=== PATIENT | female | born 1950 | race Caucasian/White ===

== ENCOUNTER 2020-07-04 17:13 | Observation (INO) ==
[2020-07-04] MEDS ORDERED: ASPIRIN CHEW 324 MG PO STA (18:05)
[2020-07-04] MEDS ORDERED: NITROGLYCERIN 60 SPRAYS/4.9 GM SPRAY SL STA (18:05)
--- NOTE | 2020-07-04 18:08 | Emergency Department Note ---
Impression & Plan Chest pain, Abnormal ECG, Frequent PVCs ED Provider Note NAME: HUDSON PITTMAN AGE: 70 SEX: F : 1950 ARRIVES VIA: Walk-In INFORMANT: Patient, ED PROVIDER(S): Piotr Carrillo DO CHIEF COMPLAINT: Chest discomfort HPI: The patient is a 70-year-old female who has a history of hypertension and scoliosis who presented to the emergency department for evaluation of chest discomfort. The patient states that she has had chest discomfort intermittently over the course of the last few days. She states that the pain is worsened with exertion and sometimes relieved with rest. She describes it as a tightness across the anterior part of her chest. It does not radiate to her back. She does not notice any lower extremity swelling or pain. She denies having any abdominal pain. She notices no nausea or vomiting. She states that she also notices some shortness of breath when she experiences the symptoms. She states that she was seen at acute care and had a Covid swab which was negative. She was referred to the emergency department for further evaluation. ROS: See above HPI for pertinent positives & negatives. A total of 10 systems reviewed and were otherwise negative. PAST MEDICAL HISTORY: See Below PAST SURGICAL HISTORY: See Below FAMILY HISTORY: See Below SOCIAL HISTORY: See Below HOME MEDICATIONS: See Below ALLERGIES: See Below VITALS: See Below PHYSICAL EXAMINATION: GENERAL: Patient is awake alert in no acute distress patient is resting comfortably and showing no signs of anxiety EYES: The conjunctivae are clear. The pupils are round and reactive. EARS, NOSE, MOUTH AND THROAT: The nose is without any evidence of any deformity. NECK: The neck is nontender and supple. RESPIRATORY: Normal respiratory effort is noted there is no evidence of wheezing rhonchi or rales CARDIOVASCULAR: Regular rate and rhythm noted there no murmurs rubs or gallops normal S1 normal S2. GASTROINTESTINAL: The abdomen is soft. Abdomen is nontender. BACK: Significant scoliosis noted of the thoracic spine. MUSCULOSKELETAL/EXTREMITIES: There is no evidence of gross deformity full range of motion is noted in the hips and shoulders. SKIN: There is no obvious evidence of any rash. There are no petechiae, pallor or cyanosis noted. NEUROLOGIC: Patient is awake alert and oriented x3. MEDICAL DECISION MAKING: The patient is a 70-year-old female who presented to the emergency department for an evaluation of chest discomfort. She describes pressure that was associated with shortness of breath as well as exertion. The patient was treated with aspirin and nitroglycerin in the emergency department. She was feeling much better. Cardiac biomarker was negative despite having ongoing pain throughout the day. Her EKG did show frequent PVCs as well as ST segment abnormalities that could be related to ischemia. I discussed the patient's laboratory and radiographic studies with her. I also discussed the limitations of the emergency department work-up for chest pain with her. Given the patient's risk factors as well as her abnormal EKG I do feel the patient may require inpatient management and further work-up. For this reason I discussed her case with the on-call [facility] hospitalist. They have agreed to evaluate the patient in the emergency department for further management and disposition. Triage Nursing notes reviewed. Prior medical records reviewed Vital Signs: reviewed and remarkable for elevated blood pressure. Differential diagnosis: Cardiac ischemia, aortic dissection, pulmonary embolism, pneumothorax, pneumonia, pericarditis, myocarditis, esophageal rupture, GERD, cholecystitis, pancreatitis, musculoskeletal, as well as other pathologies. ER treatment provided: See below Diagnostics interpreted by me: ECG: EKG was obtained in the emergency department. My interpretation is sinus rhythm at 69 bpm. Frequent PVCs were noted. Anterior T wave inversions were noted. No previous EKG was available for comparison. Cardiac Monitoring: An order was placed for continuous cardiac monitoring. The monitor shows a rate of 85 bpm with sinus rhythm. Laboratory studies: As stated above and show below. Imaging studies: See below Consultation(s): 1919: I discussed this case with Dr. Corona. He will evaluate the patient in the emergency department. Past Med/Surg History Medical History Hypertension Scoliosis Social History (Updated 07/04/20 @ 18:08 by Piotr Carrillo DO) Smoking Status: Never smoker Hx Alcohol Use: No Feels Safe at Home: Yes Allergies Allergies Allergy/AdvReac Type Severity Reaction Status Date / Time No Known Allergies Allergy Unverified 07/04/20 18:59 Home Meds Home Medications Medication Instructions Recorded Confirmed acetaminophen [Tylenol] 350 mg PO QID PRN 07/04/20 07/04/20 calcium carbonate-vitamin D3 1 tab PO DAILY 07/04/20 07/04/20 [Calcium + D] ibuprofen 400 mg PO Q6H PRN 07/04/20 07/04/20 lisinopril-hydrochlorothiazide 1 tab PO DAILY 07/04/20 07/04/20 Results & Data (ED) Vital Signs Vital Signs - 24 hr 07/04/20 17:20 07/04/20 17:38 07/04/20 18:00 Temperature 36.3 C L Temperature Source Oral Pulse Rate 75 70 Pulse Rhythm Regular Pulse Strength Normal Respiratory Rate 18 15 Respiratory Effort / Characteristics Non-Labored Respiratory Depth Normal Respiratory Pattern Regular Blood Pressure 155/85 H 148/87 H Blood Pressure Mean 108 107 Blood Pressure Position Sitting Pulse Oximetry 97 Oxygen Delivery Method Room Air Room Air Sepsis Recent Fever Within 48 Hours No Sepsis New/Unexplained Change in Mental Status No Sepsis Action Taken by Nursing No Action Required 07/04/20 18:03 07/04/20 18:10 07/04/20 18:20 Temperature Temperature Source Pulse Rate 74 85 76 Pulse Rhythm Pulse Strength Respiratory Rate 21 17 17 Respiratory Effort / Characteristics Respiratory Depth Respiratory Pattern Blood Pressure Blood Pressure Mean Blood Pressure Position Pulse Oximetry Oxygen Delivery Method Sepsis Recent Fever Within 48 Hours Sepsis New/Unexplained Change in Mental Status Sepsis Action Taken by Nursing 07/04/20 18:30 07/04/20 18:40 07/04/20 18:50 Temperature Temperature Source Pulse Rate 68 81 77 Pulse Rhythm Pulse Strength Respiratory Rate 14 21 17 Respiratory Effort / Characteristics Respiratory Depth Respiratory Pattern Blood Pressure 149/94 H Blood Pressure Mean 112 Blood Pressure Position Pulse Oximetry Oxygen Delivery Method Sepsis Recent Fever Within 48 Hours Sepsis New/Unexplained Change in Mental Status Sepsis Action Taken by Nursing 07/04/20 19:00 07/04/20 19:10 07/04/20 19:20 Temperature Temperature Source Pulse Rate 67 68 68 Pulse Rhythm Pulse Strength Respiratory Rate 16 21 17 Respiratory Effort / Characteristics Respiratory Depth Respiratory Pattern Blood Pressure 159/95 H Blood Pressure Mean 116 Blood Pressure Position Pulse Oximetry 95 Oxygen Delivery Method Sepsis Recent Fever Within 48 Hours Sepsis New/Unexplained Change in Mental Status Sepsis Action Taken by Nursing 07/04/20 19:30 07/04/20 19:40 07/04/20 19:50 Temperature Temperature Source Pulse Rate 66 66 65 Pulse Rhythm Pulse Strength Respiratory Rate 16 23 22 Respiratory Effort / Characteristics Respiratory Depth Respiratory Pattern Blood Pressure 133/90 Blood Pressure Mean 104 Blood Pressure Position Pulse Oximetry Oxygen Delivery Method Sepsis Recent Fever Within 48 Hours Sepsis New/Unexplained Change in Mental Status Sepsis Action Taken by Nursing 07/04/20 20:00 07/04/20 20:10 07/04/20 20:20 Temperature Temperature Source Pulse Rate 65 62 63 Pulse Rhythm Pulse Strength Respiratory Rate 15 18 20 Respiratory Effort / Characteristics Respiratory Depth Respiratory Pattern Blood Pressure 185/106 H Blood Pressure Mean 132 Blood Pressure Position Pulse Oximetry 95 Oxygen Delivery Method Sepsis Recent Fever Within 48 Hours Sepsis New/Unexplained Change in Mental Status Sepsis Action Taken by Usp Medications Current Medication List: was personally reviewed by me Laboratory Data Attestation: I reviewed the patient's lab results. Result diagrams: 07/04/20 17:55 07/04/20 17:55 Lab Results 07/04/20 07/04/20 07/04/20 Range/Units 17:55 17:55 17:55 WBC 7.51 (4.8-10.8) K/uL RBC 4.75 (4.2-5.4) M/uL Hgb 13.5 (12.0-16.0) g/dL Hct 38.4 (37-47) % MCV 80.8 (80-100) fL MCH 28.4 (25-34) pg MCHC 35.2 (32-36) g/dL RDW Std Deviation 37.4 (36.4-46.3) fL RDW Coeff of Tristin 12.5 (11.5-14.5) % Plt Count 226 (130-400) K/uL MPV 11.0 H (7.4-10.4) fL Immature Gran % (Auto) 0.1 % Neut % (Auto) 71.7 % Lymph % (Auto) 14.6 % [place] % (Auto) 10.0 % Eos % (Auto) 3.2 % Baso % (Auto) 0.4 % Neut # (Auto) 5.38 (1.4-6.5) K/uL Lymph # (Auto) 1.10 L (1.2-3.4) K/uL [place] # (Auto) 0.75 H (0.11-0.59) K/uL Eos # (Auto) 0.24 (0-0.5) K/uL Baso # (Auto) 0.03 (0-0.2) K/uL Immature Gran # (Auto) 0.01 (0.00-0.02) K/uL PT 10.4 (9.0-12.0) Seconds INR 1.0 (0.9-1.1) APTT 31.8 H (21.0-31.0) Seconds PTT Ratio 1.1 Sodium 131 L (136-145) mmol/L Potassium 3.6 (3.5-5.1) mmol/L Chloride 94 L (98-107) mmol/L Carbon Dioxide 29 (21-32) mmol/L Anion Gap 8.0 (3-11) BUN 15 (7-18) mg/dl Creatinine 0.93 (0.6-1.2) mg/dl Est Cr Clr Drug Dosing Not Reportable Est GFR ( Amer) 72.7 Est GFR (Non-Af Amer) 62.7 BUN/Creatinine Ratio 16.2 (10-20) Glucose 94 (70-99) mg/dl Calcium 9.7 (8.5-10.1) mg/dl Total Bilirubin 0.8 (0.2-1) mg/dl AST 18 (15-37) U/L ALT 21 (12-78) U/L Alkaline Phosphatase 75 (45-117) U/L Troponin I < 0.015 (0-0.045) ng/ml Total Protein 7.4 (6.4-8.2) gm/dl Albumin 3.8 (3.4-5.0) gm/dl Globulin 3.6 (2.5-4.0) gm/dl Albumin/Globulin Ratio 1.1 (0.9-2) Lipase 266 (73-393) U/L COVID-19 Eval Order SARS-CoV-2, RNA, NAAT (NEGATIVE) 07/04/20 07/04/20 07/04/20 Range/Units 19:15 19:15 20:00 WBC (4.8-10.8) K/uL RBC (4.2-5.4) M/uL Hgb (12.0-16.0) g/dL Hct (37-47) % MCV (80-100) fL MCH (25-34) pg MCHC (32-36) g/dL RDW Std Deviation (36.4-46.3) fL RDW Coeff of Tristin (11.5-14.5) % Plt Count (130-400) K/uL MPV (7.4-10.4) fL Immature Gran % (Auto) % Neut % (Auto) % Lymph % (Auto) % [place] % (Auto) % Eos % (Auto) % Baso % (Auto) % Neut # (Auto) (1.4-6.5) K/uL Lymph # (Auto) (1.2-3.4) K/uL [place] # (Auto) (0.11-0.59) K/uL Eos # (Auto) (0-0.5) K/uL Baso # (Auto) (0-0.2) K/uL Immature Gran # (Auto) (0.00-0.02) K/uL PT (9.0-12.0) Seconds INR (0.9-1.1) APTT (21.0-31.0) Seconds PTT Ratio Sodium (136-145) mmol/L Potassium (3.5-5.1) mmol/L Chloride (98-107) mmol/L Carbon Dioxide (21-32) mmol/L Anion Gap (3-11) BUN (7-18) mg/dl Creatinine (0.6-1.2) mg/dl Est Cr Clr Drug Dosing Est GFR ( Amer) Est GFR (Non-Af Amer) BUN/Creatinine Ratio (10-20) Glucose (70-99) mg/dl Calcium (8.5-10.1) mg/dl Total Bilirubin (0.2-1) mg/dl AST (15-37) U/L ALT (12-78) U/L Alkaline Phosphatase (45-117) U/L Troponin I < 0.015 (0-0.045) ng/ml Total Protein (6.4-8.2) gm/dl Albumin (3.4-5.0) gm/dl Globulin (2.5-4.0) gm/dl Albumin/Globulin Ratio (0.9-2) Lipase (73-393) U/L COVID-19 Eval Order Covid19 [facility] SARS-CoV-2, RNA, NAAT NEGATIVE (NEGATIVE) Administered Medications Discontinued Medications Aspirin (Aspirin Chew 324 Mg) 324 mg PO NOW STA Stop: 07/04/20 18:06 Last Admin: 07/04/20 18:27 Dose: 324 mg Documented by: [id number] Sodium Chloride (Nss) 500 mls @ 999 mls/hr IV .Q31M MAIDA Stop: 07/04/20 18:45 Last Infusion: 07/04/20 19:07 Dose: 0 mls/hr Documented by: [id number] Admin: 07/04/20 18:27 Dose: 999 mls/hr Documented by: [id number] Lisinopril (Lisinopril 20 Mg Tab) 20 mg PO NOW STA Stop: 07/04/20 21:26 Last Admin: 07/04/20 21:49 Dose: 20 mg Documented by: [id number] Nitroglycerin (Nitroglycerin 60 Sprays/4.9 Gm [place]) 1 sprays SL NOW STA Stop: 07/04/20 18:06 Last Admin: 07/04/20 18:27 Dose: 1 sprays Documented by: [id number] Imaging Data Radiologist's Impression: Patient: HUDSON PITTMAN RAdmit Date: 07/04/20#: [id number]: [id number] ID:[id number]: Date: [address] [place] [address] Zip: [place], [place] [address]Oyt: 70Location: EDSex: FRoom/Bed:Att Phy:Diagnosis: SOB, NEGATIVE COVID TESTPri Phy: Ana Mortensen MDService Date: 07/04/20Fam Phy:Interpreting Phy: Jr Talavera MDAdmit Phy: Ordering Phy: Piotr Carrillo DO cc: ~ XR chest 1V portable CLINICAL HISTORY: Atypical chest pain COMPARISON STUDY: No previous studies for comparison. FINDINGS: There is a prominent thoracolumbar scoliosis. The heart is the upper limits of normal in size. There is no failure. There is no focal pulmonary consolidation. There are no pleural effusions. There is a linear subsegmental atelectasis/scarring at the lung bases.[ IMPRESSION: No active disease in the chest. ACT 112: Negative or not required by law. Electronically signed by: Jr Talavera M.D. 07/04/2020 6:18 PM Dictated: 07/04/201816Transcribed: 07/04/201816 Blood Pressure Blood Pressure Findings: Elevated blood pressure Blood Pressure Disposition: further management by hospitalist Discharge Plan Visit Data Chief Complaint: Shortness of Breath/Dyspnea Stated Complaint: SOB, NEGATIVE COVID TEST ED Provider: Piotr Carrillo Discharge Problem: Chest pain, Abnormal ECG, Frequent PVCs Patient Disposition: Being Evaluated by Hospitalist Condition: Good Forms Stand Alone Forms: My [facility] Diarize Prescriptions Prescriptions: No Action acetaminophen [Tylenol] 325 mg Tablet 350 mg PO QID PRN (Reason: Pain) RF: 0 lisinopril-hydrochlorothiazide 20-12.5 mg Tablet 1 tab PO DAILY RF: 0 calcium carbonate-vitamin D3 [Calcium + D] 600 mg(1,500mg) -200 unit Tablet 1 tab PO DAILY RF: 0 ibuprofen 200 mg Tablet 400 mg PO Q6H PRN (Reason: Pain) RF: 0 Referrals Referrals: Ana Mortensen MD [Primary Care Provider] - Discharge Problem: Chest pain Qualifiers: Chest pain type: unspecified Qualified Code(s): R07.9 - Chest pain, unspecified
[2020-07-04] MEDS ORDERED: SODIUM CHLORIDE 0.9% 500 ML IV SCH (18:15)
[2020-07-04 18:16] LABS: Basophils # (auto) 0.03 K/uL (0-0.2); Basophils % (auto) 0.4 %; Eosinophils # (auto) 0.24 K/uL (0-0.5); Eosinophils % (auto) 3.2 %; Hematocrit (blood only) 38.4 % (37-47); Hemoglobin 13.5 g/dL (12.0-16.0); Immature Granulocytes # (auto) 0.01 K/uL (0.00-0.02); Immature Granulocytes % (auto) 0.1 %; Lymphocytes % (auto) 14.6 %; Mean Corpuscular Hemoglobin 28.4 pg (25-34); Mean Corpuscular Hgb Conc 35.2 g/dL (32-36); Mean Corpuscular Volume 80.8 fL (80-100); Monocytes # (auto) 0.75 K/uL (0.11-0.59); Neutrophils # (auto) 5.38 K/uL (1.4-6.5); Neutrophils % (auto) 71.7 %; Platelet Count 226 K/uL (130-400); RDW Coefficient of Variation 12.5 % (11.5-14.5); RDW Standard Deviation 37.4 fL (36.4-46.3); Red Blood Count 4.75 M/uL (4.2-5.4); White Blood Count 7.51 K/uL (4.8-10.8)
--- NOTE | 2020-07-04 18:19 | XRay Report ---
XR chest 1V portable CLINICAL HISTORY: Atypical chest pain COMPARISON STUDY: No previous studies for comparison. FINDINGS: There is a prominent thoracolumbar scoliosis. The heart is the upper limits of normal in si ze. There is no failure. There is no focal pulmonary consolidation. There are no pleural effusions. T here is a linear subsegmental atelectasis/scarring at the lung bases.[ IMPRESSION: No active disease in the chest. ACT 112: Negative or not required by law. Electronically signed by: Jr Talavera M.D. 07/04/2020 6:18 PM
[2020-07-04 18:35] LABS: Alanine Aminotransferase 21 U/L (12-78); Albumin Level 3.8 gm/dl (3.4-5.0); Aspartate Aminotransferase 18 U/L (15-37); BUN Creatinine Ratio 16.2 (10-20); Blood Urea Nitrogen 15 mg/dl (7-18); Calcium 9.7 mg/dl (8.5-10.1); Carbon Dioxide 29 mmol/L (21-32); Chloride 94 mmol/L (98-107); Est GFR (African American) 72.7; Est GFR (Non-African American) 62.7; Glucose 94 mg/dl (70-99); Lipase 266 U/L (73-393); Potassium 3.6 mmol/L (3.5-5.1); Sodium 131 mmol/L (136-145)
[2020-07-04 18:40] LABS: Albumin Globulin Ratio 1.1 (0.9-2); Alkaline Phosphatase 75 U/L (45-117); Bilirubin,Total 0.8 mg/dl (0.2-1); Globulin 3.6 gm/dl (2.5-4.0); Total Protein 7.4 gm/dl (6.4-8.2); Troponin I < 0.015 ng/ml (0-0.045)
[2020-07-04 18:41] LABS: Partial Thromboplastin Ratio 1.1; Partial Thromboplastin Time 31.8 Seconds (21.0-31.0); Prothrombin Time 10.4 Seconds (9.0-12.0)
[2020-07-04] MEDS ORDERED: lisinopril 20 MG TAB PO STA (21:25)
--- NOTE | 2020-07-04 21:42 | History & Physical Report ---
Date of Service July 04, 2020 Assessment & Plan (1) Chest pain: Relieved by nitroglycerin Rule out ACS Hypertension, slightly elevated Hyponatremia likely secondary to diuretic Rx OBS PCU Aspirin for CAD prevention until ACS ruled out Trend troponin Cardiology consult RE chest pain N.p.o. after midnight until patient seen by cardiology Careful correction of sodium, hold home diuretic for now DVT prophylaxis. Lovenox subcu Full code Text document was generated using [employer] voice recognition software. It may contain grammatical or spelling errors. Kindly contact undersigned for clarification of any documentation item in question. History of Present Illness Chief Complaint: Chest pain Primary Care Provider: Ana Mortensen MD History obtained from patient and records. Medical history significant for hypertension. Few days history of substernal chest tightness worse on exertion with some shortness of breath. No unusual cough symptoms. No unusual stress at home. Patient does not check BP at home. Discomfort relieved by aspirin and nitroglycerin administration at the ER. Medical History as above No inducible ischemia on outpatient stress echo January 2020 requested for palpitations and abnormal resting EKG. Surgical History : None Family History : COPD, leukemia, lymphoma, heart disease Personal/Social history : Non-smoker, no EtOH intake, retired caregiver Allergies Allergy/AdvReac Type Severity Reaction Status Date / Time No Known Allergies Allergy Unverified 07/04/20 18:59 Home Medications Medication Instructions Recorded Confirmed Type acetaminophen [Tylenol] 350 mg PO QID PRN 07/04/20 07/04/20 History calcium carbonate-vitamin D3 1 tab PO DAILY 07/04/20 07/04/20 History [Calcium + D] ibuprofen 400 mg PO Q6H PRN 07/04/20 07/04/20 History lisinopril-hydrochlorothiazide 1 tab PO DAILY 07/04/20 07/04/20 History Past Med/Surg History Medical History Hypertension Scoliosis Social History (Updated 07/04/20 @ 18:08 by Piotr Carrillo DO) Smoking Status: Never smoker Second Hand Exposure: No; Do You Dip or Chew Tobacco: No; Tobacco Cessation Education Requested by Patient: No Hx Alcohol Use: No Hx Substance Use: No Preferred Language: Pakistani Communication Ability: Effective Grip Boss Required: No Beliefs That Will Affect Care: None Current Living Situation: Family Other Information That Helps Us Care for You: No Feels Safe at Home: Yes Safety Concerns: Feels Safe At This Time Assistive Devices: None Review of Systems Review of Systems: As per HPI, all 10 systems reviewed, all other ROS negative Physical Exam Physical Exam: GENERAL: Comfortable, slightly anxious, pleasant, looks younger for stated age, no respiratory distress SKIN: Normal color, warm HEENT: [place] palpebral conjunctivae, no ptosis, dry buccal mucosa NECK : Supple, no tenderness CHEST : CTA, no tenderness HEART : RRR, no obvious murmurs ABDOMEN: Some distention, nontender EXTREMITIES : No LE swelling/tenderness, no other conspicuous deformities noted NEUROLOGIC : Coherent, no facial asymmetry, no other gross focality Results & Data Results & Data ([facility]) Vital Signs (Past 12 Hours) Vital Signs Temp Pulse Resp BP Pulse Ox 07/04/20 20:20 63 20 07/04/20 20:10 62 18 07/04/20 20:00 65 15 185/106 H 95 07/04/20 19:50 65 22 07/04/20 19:40 66 23 07/04/20 19:30 66 16 133/90 07/04/20 19:20 68 17 07/04/20 19:10 68 21 07/04/20 19:00 67 16 159/95 H 95 07/04/20 18:50 77 17 07/04/20 18:40 81 21 07/04/20 18:30 68 14 149/94 H 07/04/20 18:20 76 17 07/04/20 18:10 85 17 07/04/20 18:03 74 21 07/04/20 18:00 70 15 148/87 H 07/04/20 17:20 36.3 C L 75 18 155/85 H 97 Laboratory Results Laboratory Results WBC 7.51 K/uL (4.8-10.8) 07/04/20 17:55 RBC 4.75 M/uL (4.2-5.4) 07/04/20 17:55 Hgb 13.5 g/dL (12.0-16.0) 07/04/20 17:55 Hct 38.4 % (37-47) 07/04/20 17:55 MCV 80.8 fL (80-100) 07/04/20 17:55 MCH 28.4 pg (25-34) 07/04/20 17:55 MCHC 35.2 g/dL (32-36) 07/04/20 17:55 RDW Std Deviation 37.4 fL (36.4-46.3) 07/04/20 17:55 RDW Coeff of Tristin 12.5 % (11.5-14.5) 07/04/20 17:55 Plt Count 226 K/uL (130-400) 07/04/20 17:55 MPV 11.0 fL (7.4-10.4) H 07/04/20 17:55 Immature Gran % (Auto) 0.1 % 07/04/20 17:55 Neut % (Auto) 71.7 % 07/04/20 17:55 Lymph % (Auto) 14.6 % 07/04/20 17:55 [place] % (Auto) 10.0 % 07/04/20 17:55 Eos % (Auto) 3.2 % 07/04/20 17:55 Baso % (Auto) 0.4 % 07/04/20 17:55 Neut # (Auto) 5.38 K/uL (1.4-6.5) 07/04/20 17:55 Lymph # (Auto) 1.10 K/uL (1.2-3.4) L 07/04/20 17:55 [place] # (Auto) 0.75 K/uL (0.11-0.59) H 07/04/20 17:55 Eos # (Auto) 0.24 K/uL (0-0.5) 07/04/20 17:55 Baso # (Auto) 0.03 K/uL (0-0.2) 07/04/20 17:55 Immature Gran # (Auto) 0.01 K/uL (0.00-0.02) 07/04/20 17:55 PT 10.4 Seconds (9.0-12.0) 07/04/20 17:55 INR 1.0 (0.9-1.1) 07/04/20 17:55 APTT 31.8 Seconds (21.0-31.0) H 07/04/20 17:55 PTT Ratio 1.1 07/04/20 17:55 Sodium 131 mmol/L (136-145) L 07/04/20 17:55 Potassium 3.6 mmol/L (3.5-5.1) 07/04/20 17:55 Chloride 94 mmol/L (98-107) L 07/04/20 17:55 Carbon Dioxide 29 mmol/L (21-32) 07/04/20 17:55 Anion Gap 8.0 (3-11) 07/04/20 17:55 BUN 15 mg/dl (7-18) 07/04/20 17:55 Creatinine 0.93 mg/dl (0.6-1.2) 07/04/20 17:55 Est Cr Clr Drug Dosing Not Reportable 07/04/20 17:55 Est GFR ( Amer) 72.7 07/04/20 17:55 Est GFR (Non-Af Amer) 62.7 07/04/20 17:55 BUN/Creatinine Ratio 16.2 (10-20) 07/04/20 17:55 Glucose 94 mg/dl (70-99) 07/04/20 17:55 Calcium 9.7 mg/dl (8.5-10.1) 07/04/20 17:55 Total Bilirubin 0.8 mg/dl (0.2-1) 07/04/20 17:55 AST 18 U/L (15-37) 07/04/20 17:55 ALT 21 U/L (12-78) 07/04/20 17:55 Alkaline Phosphatase 75 U/L (45-117) 07/04/20 17:55 Troponin I < 0.015 ng/ml (0-0.045) 07/04/20 20:00 Total Protein 7.4 gm/dl (6.4-8.2) 07/04/20 17:55 Albumin 3.8 gm/dl (3.4-5.0) 07/04/20 17:55 Globulin 3.6 gm/dl (2.5-4.0) 07/04/20 17:55 Albumin/Globulin Ratio 1.1 (0.9-2) 07/04/20 17:55 Lipase 266 U/L (73-393) 07/04/20 17:55 COVID-19 Eval Order Covid19 [facility] 07/04/20 19:15 SARS-CoV-2, RNA, NAAT NEGATIVE (NEGATIVE) 07/04/20 19:15 Diagnostic Findings Chest x-ray : No active disease in the chest. EKG as per my interpretation : Rate 70, NSR, normal axis, T wave flattening inferior and septal leads, PVCs, (1) Chest pain Chest pain type: unspecified Qualified Code(s): R07.9 - Chest pain, unspecified
[2020-07-04] MEDS ORDERED: MoRPHine SULFATE 4 MG/ML 1 ML CARP\\VIAL IV PRN (22:59)
[2020-07-04] MEDS ORDERED: ACETAMINOPHEN 325 MG TAB PO PRN (22:59)
[2020-07-04] MEDS ORDERED: oxyCODONE HCL IR 5 MG TAB (IMMEDIATE RELEASE) PO PRN (22:59)
[2020-07-04] MEDS ORDERED: LORazepam 0.25 MG/0.5 ML VIAL IV PRN (22:59)
[2020-07-05] MEDS ORDERED: POTASSIUM CHLORIDE 40 MEQ in SODIUM CHLORIDE 0.9% 1000ML 1,000 ML IV SCH
[2020-07-05] MEDS ORDERED: POTASSIUM CHLORIDE CRTAB 20 MEQ TABCR PO STA (01:33)
[2020-07-05] MEDS ORDERED: MAGNESIUM SULFATE / D5W 1 GM/100 ML BAG IV ONE (05:31)
[2020-07-05 06:09] LABS: Basophils # (auto) 0.02 K/uL (0-0.2); Basophils % (auto) 0.4 %; Eosinophils # (auto) 0.23 K/uL (0-0.5); Eosinophils % (auto) 4.8 %; Hematocrit (blood only) 38.4 % (37-47); Hemoglobin 13.3 g/dL (12.0-16.0); Immature Granulocytes # (auto) 0.01 K/uL (0.00-0.02); Immature Granulocytes % (auto) 0.2 %; Lymphocytes # (auto) 0.88 K/uL (1.2-3.4); Lymphocytes % (auto) 18.5 %; Mean Corpuscular Hemoglobin 28.3 pg (25-34); Mean Corpuscular Hgb Conc 34.6 g/dL (32-36); Mean Corpuscular Volume 81.7 fL (80-100); Mean Platelet Volume 10.8 fL (7.4-10.4); Monocytes # (auto) 0.63 K/uL (0.11-0.59); Monocytes % (auto) 13.3 %; Neutrophils # (auto) 2.98 K/uL (1.4-6.5); Neutrophils % (auto) 62.8 %; Platelet Count 211 K/uL (130-400); RDW Coefficient of Variation 12.6 % (11.5-14.5); RDW Standard Deviation 37.9 fL (36.4-46.3); White Blood Count 4.75 K/uL (4.8-10.8)
[2020-07-05 06:23] LABS: Partial Thromboplastin Ratio 1.1; Partial Thromboplastin Time 31.7 Seconds (21.0-31.0)
[2020-07-05 06:57] LABS: BUN Creatinine Ratio 15.1 (10-20); Blood Urea Nitrogen 12 mg/dl (7-18); Carbon Dioxide 31 mmol/L (21-32); Chloride 104 mmol/L (98-107); Chol HDL Ratio 3; Cholesterol 204 mg/dl (0-200); Creatinine Clr Calc Pharmacy 59.3 ml/min; Est GFR (African American) 85.9; Est GFR (Non-African American) 74.1; Glucose 85 mg/dl (70-99); HDL Cholesterol 61 mg/dl; LDL Cholesterol Calculated 133 mg/dl; Potassium 4.5 mmol/L (3.5-5.1); Sodium 136 mmol/L (136-145); Triglycerides 51 mg/dl (0-150); Troponin I < 0.015 ng/ml (0-0.045); VLDL Cholesterol 10 mg/dl
[2020-07-05] MEDS ORDERED: ASPIRIN 81 MG ECTAB PO SCH (09:00)
[2020-07-05] MEDS ORDERED: lisinopril 20 MG TAB PO SCH (09:00)
[2020-07-05] MEDS ORDERED: ENOXAPARIN INJ 40 MG/0.4 ML SYR SQ SCH (09:00)
[2020-07-05] MEDS ORDERED: ASPIRIN 81 MG CHEW PO ONE (09:30)
[2020-07-05] MEDS ORDERED: niCARdipine HCL INJ 2.5 MG/ML 10 ML AMP ONE (09:41)
[2020-07-05] MEDS ORDERED: fentaNYL citrate 100 MCG/2 ML VIAL ONE (09:41)
[2020-07-05] MEDS ORDERED: MIDAZOLAM HCL 1 MG/ML 2ML VIAL ONE (09:41)
[2020-07-05] MEDS ORDERED: HEPARIN (PORCINE) 1000 UNIT/ML 10 ML (CATH LAB USE ONLY) ONE (09:41)
--- NOTE | 2020-07-05 09:45 | Cardiology Consultation ---
Date of Consultation July 05, 2020 Assessment & Plan (1) Chest pain: (2) Frequent PVCs: (3) NSVT (nonsustained ventricular tachycardia): Patient with chief complaint of exertional chest tightness and progressive decline in activity tolerance over several months. Serial cardiac enzymes are negative. Frequent PVCs noted at rest, with 8 beat run of nonsustained VT noted this morning on telemetry at 6:19 AM. Her resting echocardiogram reveals mild concentric left ventricular hypertrophy with normal left ventricular systolic function and mild mitral regurgitation. A stress echocardiogram was performed, with noted severely reduced exercise tolerance, with test terminated during s tage I of exercise due to severe exercise-induced dyspnea, inability to keep up with the treadmill, and noted 3 beat salvos of nonsustained ventricular tachycardia. Left ventricular ejection fraction increases on the post exercise images, but not to the degree that would be expected with regards to a normal study, and equivocal basal posterior basal inferior wall motion abnormality cannot be excl uded. Given the clinical description of her symptoms, as well as resting and exercise- induced arrhythmia, recommend proceeding with invasive coronary angiography for further evaluation. Patient was agreeable with this plan, and is to be assessed by Dr. Aguilar to discuss cardiac catheterization. Will administer aspirin 81 mg x 4 tablets to be chewed now. Will start atorvastatin. Per patient request, I will update her daughter , Mayra , by phone [phone]. She called her daughter because her is hard of hearing. History of Present Illness Attending Physician: Jun Anne MD History of Present Illness Judit Hicks is a 70 year old female seen in cardiology consultation per the request of Dr Smith for the evaluation of chest tightness and frequent PVCs. The patient's PCP is Dr Mortensen who follows her for hypertension. In January,, she had undergone an exercise stress echocardiogram. The test was negative for ischemia, but decreased exercise tolerance was noted, achieving 5 minutes on a Peter protocol, and frequent PVCs were noted with stress. The LVEF was normal at rest and post exercise. The patient presented to the emergency department last evening having had 3 to 4 days of waxing and waning chest tightness with physical exertion. She describes it as a chest heaviness. It persist with activity such as walking her dog. Her symptoms persisted until she was seen in the emergency room, possibly responded to nitroglycerin, the patient's not sure, initially she felt well last night, but she did have a transient return of her symptoms overnight last night. Troponin I has been negative x3. Serial EKGs performed last evening and again this morning revealed sinus rhythm without significant repolarization changes, frequent PVCs noted on telemetry including an 8 beat run of nonsustained ventricular tachycardia observed at 6:19 AM this morning. The patient denies any family history of heart disease. Family History: Mother at the age of 86 with history of COPD Father at the age of 30 of leukemia She has a younger sister who was treated for lymphoma. She also has a twin sister and 2 brothers, none of whom have a history of heart disease. 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, who recently Allergies Allergy/AdvReac Type Severity Reaction Status Date / Time No Known Allergies Allergy Unverified 07/04/20 18:59 Home Medications Medication Instructions Recorded Confirmed Type acetaminophen [Tylenol] 350 mg PO QID PRN 07/04/20 07/04/20 History calcium carbonate-vitamin D3 1 tab PO DAILY 07/04/20 07/04/20 History [Calcium + D] ibuprofen 400 mg PO Q6H PRN 07/04/20 07/04/20 History lisinopril-hydrochlorothiazide 1 tab PO DAILY 07/04/20 07/04/20 History Patient History Medical History Hypertension Scoliosis Social History Smoking Status: Never smoker Second Hand Exposure: No; Do You Dip or Chew Tobacco: No; Tobacco Cessation Education Requested by Patient: No Hx Alcohol Use: No Hx Substance Use: No Preferred Language: Syrian Communication Ability: Effective Certified Coder Required: No Beliefs That Will Affect Care: None Current Living Situation: Family Other Information That Helps Us Care for You: No Feels Safe at Home: Yes Safety Concerns: Feels Safe At This Time Assistive Devices: None Review of Systems Review of Systems: All systems reviewed & are unremarkable except as noted in HPI & below Physical Exam Physical Exam: Temp Pulse Resp BP Pulse Ox 36.6 C 60 16 118/67 94 07/05/20 04:22 07/05/20 04:22 07/05/20 04:22 07/05/20 04:22 07/05/20 04:22 Constitutional: WD/WN, vitals as above Respiratory: normal respiratory effort, lungs clear to auscultation Cardiovascular: Rate/Rhythm: regular rate (regular rhythm with occasional ectopy) Heart Sounds: no murmur Vessels: no JVD Gastrointestinal (Abdomen): normal bowel sounds, soft, nontender, no hepatosplenomegaly Neurologic: PERRL, EOMI, accommodation nl, no face palsy, no dysarthria Results & Data ([facility]) Vital Signs (Past 12 Hours) Vital Signs Temp Pulse Pulse Resp BP BP Pulse Ox 07/05/20 04:22 36.6 C 60 16 118/67 94 07/05/20 00:00 65 07/04/20 23:11 36.7 C 72 18 139/90 95 07/04/20 22:20 60 16 98 07/04/20 22:10 73 20 97 07/04/20 22:00 70 22 147/94 H 98 07/04/20 21:50 67 14 07/04/20 21:40 66 18 07/04/20 21:37 65 24 149/95 H 07/04/20 21:30 60 13 130/81 Laboratory Results Cardiac Enzymes 07/04/20 07/04/20 07/05/20 Range/Units 17:55 20:00 05:50 AST 18 (15-37) U/L Troponin I < 0.015 < 0.015 < 0.015 (0-0.045) ng/ml Coagulation 07/04/20 07/05/20 Range/Units 17:55 05:50 PT 10.4 (9.0-12.0) Seconds APTT 31.8 H 31.7 H (21.0-31.0) Seconds Lipids 07/05/20 Range/Units 05:50 Triglycerides 51 (0-150) mg/dl Cholesterol 204 H (0-200) mg/dl HDL Cholesterol 61 mg/dl Cholesterol/HDL Ratio 3 CBC 07/04/20 07/05/20 Range/Units 17:55 05:50 WBC 7.51 4.75 L (4.8-10.8) K/uL RBC 4.75 4.70 (4.2-5.4) M/uL Hgb 13.5 13.3 (12.0-16.0) g/dL Hct 38.4 38.4 (37-47) % Plt Count 226 211 (130-400) K/uL Neut # (Auto) 5.38 2.98 (1.4-6.5) K/uL Lymph # (Auto) 1.10 L 0.88 L (1.2-3.4) K/uL Juab # (Auto) 0.75 H 0.63 H (0.11-0.59) K/uL Eos # (Auto) 0.24 0.23 (0-0.5) K/uL Baso # (Auto) 0.03 0.02 (0-0.2) K/uL Comprehensive Metabolic Panel 07/04/20 07/05/20 Range/Units 17:55 05:50 Sodium 131 L 136 (136-145) mmol/L Potassium 3.6 4.5 D (3.5-5.1) mmol/L Chloride 94 L 104 (98-107) mmol/L Carbon Dioxide 29 31 (21-32) mmol/L BUN 15 12 (7-18) mg/dl Creatinine 0.93 0.81 (0.6-1.2) mg/dl Glucose 94 85 (70-99) mg/dl Calcium 9.7 9.0 (8.5-10.1) mg/dl AST 18 (15-37) U/L ALT 21 (12-78) U/L Alkaline Phosphatase 75 (45-117) U/L Total Protein 7.4 (6.4-8.2) gm/dl Albumin 3.8 (3.4-5.0) gm/dl Intake and Output 07/04/20 07/05/20 07/05/20 22:59 06:59 14:59 Intake Total 500 / 500 537.5 / 537.5 Balance 500 / 500 537.5 / 537.5 Intake: IV 500 / 500 537.5 / 537.5 MAGNESIUM SULFATE / D5W 1 gm In 100 / 100 100 ml @ 50 mls/hr IV ONE ONE Rx#:[id number] KCl 40 Meq In Nss 1000ML 1,000 437.5 / 437.5 ml @ 50 mls/hr IV .[id number] MAIDA Rx#:[id number] Nss 500 ml @ 999 mls/hr IV . 500 / 500 Q31M MAIDA Rx#:[id number] Other: Other Intake Source npo Weight 65.7 kg 64.7 kg Weight Measurement Method Built in Bedscale Standing Scale Diagnostic Findings EKG performed 07/04/20, at 1733 revealed SR with frequent PVCs , mild nonspecific repolarization changes noted on the sinus beats. (1) Chest pain Chest pain type: unspecified Qualified Code(s): R07.9 - Chest pain, unspecified
[2020-07-05] MEDS ORDERED: NITROGLYCERIN/D5W 100MCG/ML 20ML SYR ONE (09:47)
--- NOTE | 2020-07-05 09:54 | Communication Note ---
Date of Service: July 05, 2020 I called and updated patient's daughter with regards to plans for cardiac catheterization.
--- NOTE | 2020-07-05 10:02 | Pre Anesthesia Assessment ---
Date of Service July 05, 2020 Pre Sedation Assessment Vital Signs Temp Pulse Pulse Resp BP BP Pulse Ox 07/05/20 09:52 36.9 C 70 16 142/86 H 97 07/05/20 08:00 65 07/05/20 04:22 36.6 C 60 16 118/67 94 07/05/20 00:00 65 07/04/20 23:11 36.7 C 72 18 139/90 95 07/04/20 22:20 60 16 98 07/04/20 22:10 73 20 97 07/04/20 22:00 70 22 147/94 H 98 07/04/20 21:50 67 14 07/04/20 21:40 66 18 07/04/20 21:37 65 24 149/95 H 07/04/20 21:30 60 13 130/81 07/04/20 21:20 66 18 07/04/20 21:10 62 17 07/04/20 21:00 61 21 136/87 07/04/20 20:50 66 16 07/04/20 20:40 61 20 07/04/20 20:31 60 14 137/86 07/04/20 20:30 64 20 07/04/20 20:20 63 20 07/04/20 20:10 62 18 07/04/20 20:00 65 15 185/106 H 95 07/04/20 19:50 65 22 07/04/20 19:40 66 23 07/04/20 19:30 66 16 133/90 07/04/20 19:20 68 17 07/04/20 19:10 68 21 07/04/20 19:00 67 16 159/95 H 95 07/04/20 18:50 77 17 07/04/20 18:40 81 21 07/04/20 18:30 68 14 149/94 H 07/04/20 18:20 76 17 07/04/20 18:10 85 17 07/04/20 18:03 74 21 07/04/20 18:00 70 15 148/87 H 07/04/20 17:20 36.3 C L 75 18 155/85 H 97 Cardiovascular RRR, no murmur, no edema Respiratory normal respiratory effort, lungs clear to auscultation Pre-Sedation Airway Assessment Smoking Status: Never smoker Hx Sleep Apnea: No Short, Thick Neck: Yes Thyromental Distance: > or= 3.5 Finger Breadths Oral Cavity: + Dentures Mallampati Class: II ASA: ASA2 NPO Status Date of Last Intake of Fluids: 07/04/20 Time of Last Intake of Fluids: 16:00 Date of Last Intake of Solid Food: 07/04/20 Time of Last Intake of Solid Foods: 16:00 Procedure Planning Contraindications for Sedation: none Current Medications Reviewed: Yes Notes The planned sedation has been discussed with the patient. Informed Consent was obtained. I have identified the patient, determined the appropriateness of sedation and have assessed the patient immediately prior to the procedure. All medicine(s) and interventions are by my order.
--- NOTE | 2020-07-05 11:24 | Post Anesthesia Assessment ---
Date of Service July 05, 2020 Post Sedation Assessment Vital Signs Temp Pulse Pulse Resp BP BP Pulse Ox 07/05/20 09:52 36.9 C 70 16 142/86 H 97 07/05/20 08:00 65 07/05/20 04:22 36.6 C 60 16 118/67 94 07/05/20 00:00 65 07/04/20 23:11 36.7 C 72 18 139/90 95 07/04/20 22:20 60 16 98 07/04/20 22:10 73 20 97 07/04/20 22:00 70 22 147/94 H 98 07/04/20 21:50 67 14 07/04/20 21:40 66 18 07/04/20 21:37 65 24 149/95 H 07/04/20 21:30 60 13 130/81 07/04/20 21:20 66 18 07/04/20 21:10 62 17 07/04/20 21:00 61 21 136/87 07/04/20 20:50 66 16 07/04/20 20:40 61 20 07/04/20 20:31 60 14 137/86 07/04/20 20:30 64 20 07/04/20 20:20 63 20 07/04/20 20:10 62 18 07/04/20 20:00 65 15 185/106 H 95 07/04/20 19:50 65 22 07/04/20 19:40 66 23 07/04/20 19:30 66 16 133/90 07/04/20 19:20 68 17 07/04/20 19:10 68 21 07/04/20 19:00 67 16 159/95 H 95 07/04/20 18:50 77 17 07/04/20 18:40 81 21 07/04/20 18:30 68 14 149/94 H 07/04/20 18:20 76 17 07/04/20 18:10 85 17 07/04/20 18:03 74 21 07/04/20 18:00 70 15 148/87 H 07/04/20 17:20 36.3 C L 75 18 155/85 H 97 Recovery Score Activity: Moves 4 extremities Respiration: Deep Breath/Cough Circulation: +/-20% PreAnes Value Consciousness: Arouseable (by name) Oxygen Saturation: > 92% On Room Air Discharge Sedation Level of Care: Phase I Post Sedation Plan On clinical assessment, the patient appears to have tolerated the sedation without complications. Patient is recovering as anticipated. Patient will continue to be monitored by nursing and may be discharged when sedation discharge criteria are met per below protocol. Upon Completions of procedure up to 15 minutes continue every 5 minute vital signs and the P.A.R. score; then discharge to a Phase I or Fast Track to Phase II per the following guidelines: * Discharge Patient to appropriate Phase II area if PAR is 8 or greater or return to pre- procedure baseline. The post - procedure orders will be as directed. * If PAR score is less than 8 or not return to pre-procedure baseline then patient will follow Phase I monitoring till PAR is reached for Phase II. The Phase I may be done in procedure room or may call to secure a Phase I area. * If naloxone or flumazenil are used for reversal, hold in Phase I for continued monitoring from when last reversal dose was given for a minimum of 60 minutes or longer pending the nurse and/or physician discretion of patient condition before discharge to Phase II. Please call the Sedation Physician to re-evaluate and complete post-note for discharge to Phase II area. Do NOT discharge from procedure sedation or Phase 1 until post- sedation evaluation note is complete by procedure /sedation MD Sedation Discharge Instructions to be given to the patient at discharge to home.
--- NOTE | 2020-07-05 11:29 | Cardiac Catheterization ---
Cardiac Cath Procedure Full Procedure Date July 05, 2020 Pre-Procedure Diagnosis Pre-Procedure Diagnosis: Positive Stress Test and Arrhythmia (NSVT) AUC Score AUC Score: 7 Post-Procedure Diagnosis Post-Procedure Diagnosis: Normal Coronary Arteries and Normal Intracardiac Pressures Procedure(s) Performed Procedure(s) Performed: Coronary Angiography and Left Heart Cath [employer] Solution Architect Anthony Aguilar DO Credit Department Manager(s) Madelyn RTR Estimated Blood Loss Estimated Blood Loss: 8cc Medication(s) Medication(s): Fentanyl, Lidocaine 1% and Versed Summary of Findings Normal coronary arteries Hemodynamics Rest Ao:: 104/53/75 Final Ao: 114/57/78 LV: 110/-6/3 Recommendations Recommendations: Medical Therapy and/or Counseling Specimens Specimens: None Radiation Exposure (mGy) 202 Contrast (mls) 25 Fluids (cc crystalloids) Fluids (cc crystalloids): 100 Nss Drains Drains: N/A Anesthesia Moderate sedation. Start 1036. End 1122. Sedation monitor Gualberto ALARCON. Procedural Complication(s) None Disposition Tube Sizer Operator Holding/Recovery I attest to the content of the Intraoperative Record and any orders documented therein. Any exceptions are noted below. ACC Data: Tube Sizer Operator Cardiac Status Clinical evaluation leading to the procedure CAD Presenation: Positive Stress Test and Stable angina Anginal Classification: CCS II Stress Echocardiogram: Yes - Positive and Risk/Extent of Ischemia (Intermediate) Coronary Anatomy Dominant: Right Left Main (% Stenosis): Normal LAD (% Stenosis): Normal D1 (% Stenosis): Normal Circumflex (% Stenosis): Normal OM1 (% Stenosis): Normal L PL1 (% Stenosis): Normal L PL2 (% Stenosis): Normal RCA (% Stenosis): Normal R PDA (% Stenosis): Normal R PL1 (% Stenosis): Normal (1mm vessel) R PL2 (% Stenosis): Normal Diagnostic Physicians Name: Anthony Aguilar DO Status: Elective Closure Device Percutaneous Entry Location: Radial (unable to advance wire (micro-puncture and Kirby) due to radial artery spasm. ) Closure Device: Mynx Recommendations: Medical Therapy and/or Counseling Intraprocedure Events Significant Disection: No Perforation: No
[2020-07-05] MEDS ORDERED: METOPROLOL SUCC 25MG EXT REL TAB PO SCH (12:30)
[2020-07-05] MEDS ORDERED: SODIUM CHLORIDE 0.9% 500 ML IV SCH (12:30)
--- NOTE | 2020-07-05 12:32 | Communication Note ---
Date of Service: July 05, 2020 Normal coronary arteries on cardiac cath Start metoprolol succinate 25 mg daily. Does not have risk factors for venous thromboembolic event, no recent stasis or travel, she is not tachycardic or hypoxic, no lower extremity pain or edema. We will start metoprolol succinate 25 mg daily for treatment of frequent PVCs. If patient completes post cardiac catheterization recovery without event, likely can be discharged later today, with planned cardiology follow-up with regards to PVCs. I called her daughter, Mayra, and provided update by phone.
--- NOTE | 2020-07-05 12:55 | Electrocardiogram Report ---
Test Reason : Blood Pressure : / mmHG Vent. Rate : 069 BPM Atrial Rate : 069 BPM P-R Int : 118 ms QRS Dur : 080 ms QT Int : 406 ms P-R-T Axes : 062 066 077 degrees QTc Int : 435 ms Sinus rhythm with frequent Premature ventricular complexes Nonspecific ST and T wave abnormality Abnormal ECG No previous ECGs available Confirmed by David Mari ([id number]) on 07/05/2020 12:55:18 PM Referred By: REFERRED SELF Confirmed By:Tim Mari
--- NOTE | 2020-07-05 13:01 | Electrocardiogram Report ---
Test Reason : Blood Pressure : / mmHG Vent. Rate : 060 BPM Atrial Rate : 060 BPM P-R Int : 136 ms QRS Dur : 084 ms QT Int : 462 ms P-R-T Axes : 047 064 064 degrees QTc Int : 462 ms Normal sinus rhythm Nonspecific ST and T wave abnormality Abnormal ECG When compared with ECG of 04-JUL-2020 17:33, (unconfirmed) Premature ventricular complexes are no longer Present Confirmed by David Mari ([id number]) on 07/05/2020 1:01:11 PM Referred By: REFERRED SELF Confirmed By:Tim Mari
--- NOTE | 2020-07-05 15:07 | Discharge Summary ---
Date of Service July 05, 2020 Admission HPI Per Admitting Provider History obtained from patient and records. Medical history significant for hypertension. Few days history of substernal chest tightness worse on exertion with some shortness of breath. No unusual cough symptoms. No unusual stress at home. Patient does not check BP at home. Discomfort relieved by aspirin and nitroglycerin administration at the ER. Medical History as above No inducible ischemia on outpatient stress echo January 2020 requested for palpitations and abnormal resting EKG. Surgical History : None Family History : COPD, leukemia, lymphoma, heart disease Personal/Social history : Non-smoker, no EtOH intake, retired caregiver Admission Exam Per Admitting Provider GENERAL: Comfortable, slightly anxious, pleasant, looks younger for stated age, no respiratory distress SKIN: Normal color, warm HEENT: [place] palpebral conjunctivae, no ptosis, dry buccal mucosa NECK : Supple, no tenderness CHEST : CTA, no tenderness HEART : RRR, no obvious murmurs ABDOMEN: Some distention, nontender EXTREMITIES : No LE swelling/tenderness, no other conspicuous deformities noted NEUROLOGIC : Coherent, no facial asymmetry, no other gross focality Principal Diagnosis Chest pain Frequest PVCs Discharge Exam General: A&Ox3. NAD HENT: NCAT, MMM, EOMI Eyes: PERRLA Neck: Supple, normal range of motion CVS: normal rate and rhythm Resp: b/l good breath sounds Abdomen: Soft, ND/NT, +BS Extremities: right groin cath side looks ok, no active bleeding noted Neuro: face symmetric, strength grossly equal, no focal deficit Skin: warm and dry, no rashes/lesions/errythema MSK: normal ROM, no joint swelling/erythema Discharge Data Allergies Allergy/AdvReac Type Severity Reaction Status Date / Time No Known Allergies Allergy Unverified 07/04/20 18:59 Consultations 07/04/20 19:19 ED Decision to Admit Stat 07/04/20 22:59 Consult Cardiology Routine Procedures Performed Operation Date: 07/05/20 09:35 Actual Procedures p Cath, Left with Cors and Vent - Anthony Aguilar DO s Cineradiography w/Routine Exam - Anthony Aguilar DO Ordered Studies 07/05/20 09:36 CL Cath Imgs for PACS use only Routine Hospital Course (1) Chest pain: Patient is 70-year-old female with a past medical history of hypertension presented to the ED with chest pain. Cardiology was consulted. Stress echo was done. Patient underwent cardiac catheterization which did not reveal any coronary artery disease. Patient was found to have frequent PVCs. She was started on metoprolol succinate 25 mg twice daily. On the day of discharge patient was stable. Hemodynamically she was doing fine. Patient did not have any active complaints. She was discharged in stable condition. Total Time Total Time Spent Total Time Spent (In Minutes): 35 Discharge Plan Discharge Items Patient Disposition: Home - Self-Care Reason For Visit: SOB, NEGATIVE COVID TEST Discharge Diagnosis: Chest pain PVCs Condition on Discharge: Good Activity: Resume your previous activity Lifting: Gradually increase as tolerated Non-emergency contact: Primary Care Provider Call non-emergency contact if: your symptoms worsen Follow-up/Referrals: Ana Mortensen MD [Primary Care Provider] - 07/12/20 12:00 pm Diet: Regular, Gluten Free and Heart Healthy Addtl Attending Provider Instructions: Follow-up with your primary care physician within 1 week. Start taking Lopressor 25 mg twice daily. Pending Studies at Discharge: No Stand-Alone Forms: [employer], Smoking Cessation Medications and DC Order Prescriptions: New metoprolol succinate 25 mg Tablet Extended Release 24 Hr 25 mg PO BID Qty: 60 RF: 0 Continued acetaminophen [Tylenol] 325 mg Tablet 350 mg PO QID PRN (Reason: Pain) RF: 0 lisinopril-hydrochlorothiazide 20-12.5 mg Tablet 1 tab PO DAILY RF: 0 calcium carbonate-vitamin D3 [Calcium + D] 600 mg(1,500mg) -200 unit Tablet 1 tab PO DAILY RF: 0 ibuprofen 200 mg Tablet 400 mg PO Q6H PRN (Reason: Pain) RF: 0 Discharge Orders: Discharge Order (Routine); Ordered 07/05/20 Ordered By: Jun Anne Admission Data Admit Date/Time: 07/04/20 21:45 Attending Provider: Jun Anne Admit Provider: Je Smith Primary Care Provider: Ana Mortensen Other Providers: Je Smith ; Luis Fernando Long ; Jose Ferguson ; Jon Horne ; Anthony Aguilar ; Jomar Cadet ; Jose Strong ; Mila Romero ; Genevieve Knutson ; Reji Navarrete
--- NOTE | 2020-07-05 16:45 | Communication Note ---
Date of Service: July 05, 2020 Pt had unsuccessful right radial access for cardiac cath due to spasm. Successful right femoral arterial access wiht closure device. Has completed 4 hour recovery. I examined pt, going soft, no hematoma. SR with rare PVCs noted on monitor, less frequent than this am. Pt stable for discharge to home on metoprolol succinate 25 mg daily, I placed note in her outpt chart to arrange cardio follow up in 2-4 weeks, office to contact pt next week.
[2020-07-06] MEDS ORDERED: ASPIRIN 81 MG ECTAB PO SCH (09:00)
== END 2020-07-05 18:37 | disposition home or self-care (01) ==
LOC: ED 17:13 → 2S 17:13